=== PATIENT | male | born 1975 | race Caucasian/White ===

== ENCOUNTER 2022-01-07 12:47 | Outpatient (CLI) | payer BC ==
[2022-01-07 13:35] LABS: Hemoglobin 14.9 g/dL (13.5-17.5); Mean Corpuscular Hemoglobin 30.7 pg (27.0-33.0); Mean Platelet Volume 10.7 fl (7.4-10.4); Platelet Count 265 10x3/uL (150-450); RBC Distribution Width 13.5 % (11.5-14.5); Red Blood Cell (RBC) Count 4.85 10x6/uL (4.32-5.72); White Blood Cell (WBC) Count 7.6 10x3/uL (3.5-10.5)
[2022-01-07 13:54] LABS: INR-International Normal Ratio 0.9; PTT 26.5 sec (22.0-33.0); Prothrombin Time 10.3 sec (9.5-12.1)
== END 2022-01-07 12:48 | disposition home or self-care (01) ==
LOC: LABBT 12:47
PROVIDERS: ATTEND Neurological Surgery
DX: Z01.812 Encounter for preprocedural laboratory examination (principal); M50.222 Other cervical disc displacement at C5-C6 level
CPT/HCPCS: 85027; 85610; 85730

== ENCOUNTER 2022-01-10 10:19 | Day surgery (SDC) | payer BC ==
[2022-01-04 09:10] VITALS: BMI 37.3
[2022-01-10] MEDS ORDERED: Thrombin 5000 UNITS/5 ML VIAL ONE (11:32)
[2022-01-10] MEDS ORDERED: Neomycin-Polymyxin 1 ML AMP ONE (11:32)
[2022-01-10] MEDS ORDERED: ceFAZolin 2 GM/Dextrose 50 ML IVPB ONE (11:53)
[2022-01-10] MEDS ORDERED: Midazolam HCl 2 mg/2 ml Vial ONE (11:58)
[2022-01-10] MEDS ORDERED: Fentanyl 250 MCG/5 ML VIAL ONE ×2 (11:58→16:32)
[2022-01-10] MEDS ORDERED: Famotidine/PF 20 mg/2ml Vial ONE (11:58)
[2022-01-10] MEDS ORDERED: ePHEDrine 50 MG/ML VIAL ONE (12:08)
[2022-01-10] MEDS ORDERED: Lidocaine 1% PF 5 ML VIAL ONE (12:08)
[2022-01-10] MEDS ORDERED: Ondansetron PF 4 MG/2 ML Vial ONE (12:08)
[2022-01-10] MEDS ORDERED: Rocuronium Bromide 10 MG/ML (10ML VIAL) ONE (12:08)
[2022-01-10] MEDS ORDERED: Metoclopramide HCl 10 MG/2 ML VIAL ONE (12:08)
[2022-01-10] MEDS ORDERED: PHENYLEPHRINE-NS 100 MCG/ML 10 ML SYRINGE ONE (12:08)
[2022-01-10] MEDS ORDERED: PROPOFOL 200 MG/20 ML VIAL ONE (12:08)
[2022-01-10] MEDS ORDERED: Dexamethasone 20 MG/5 ML VIAL ONE (12:08)
[2022-01-10] MEDS ORDERED: Ketorolac Tromethamine 30 MG/ML VIAL ONE (12:08)
[2022-01-10] MEDS ORDERED: SUGAMMADEX SODIUM 200 MG/2 ML VIAL ONE (14:57)
[2022-01-10] MEDS ORDERED: Cyclobenzaprine 10 MG TAB ONE (17:30)
[2022-01-10] MEDS ORDERED: HYDROcodone/Acetaminophen 7.5/325 mg Tablet ONE (17:30)
== END 2022-01-10 18:50 | disposition home or self-care (01) ==
LOC: SDC 10:19
PROVIDERS: ATTEND Neurological Surgery
PROC: 0RG20A0 Fusion of 2 or more Cervical Vertebral Joints with Interbody Fusion Device, Anterior Approach, Anterior Column, Open Approach (ICD-10-PCS; principal; 2022-01-10)
DX: M50.122 Cervical disc disorder at C5-C6 level with radiculopathy (principal); E78.5 Hyperlipidemia, unspecified; G47.30 Sleep apnea, unspecified; E78.00 Pure hypercholesterolemia, unspecified; E66.9 Obesity, unspecified; Z68.37 Body mass index [BMI] 37.0-37.9, adult; Z87.891 Personal history of nicotine dependence
CPT/HCPCS: 76000; C1713; C1776; J0690; J1100; J1885; J2250; J2405; J2704; J2765; J3010; J3490; S0028

== ENCOUNTER 2022-06-18 16:00 | Outpatient (CLI) | payer BC ==
[2022-06-18 17:08] LABS: Hemoglobin 14.9 g/dL (13.5-17.5); Mean Corpuscular HGB CONC 33.7 g/dL (32.0-36.0); Mean Corpuscular Hemoglobin 31.2 pg (27.0-33.0); Mean Corpuscular Volume 92.5 fl (81.2-95.1); Mean Platelet Volume 11.4 fl (7.4-10.4); Platelet Count 264 10x3/uL (150-450); RBC Distribution Width 13.3 % (11.5-14.5); Red Blood Cell (RBC) Count 4.78 10x6/uL (4.32-5.72); White Blood Cell (WBC) Count 9.3 10x3/uL (3.5-10.5)
[2022-06-18 17:19] LABS: PTT 27.1 sec (22.0-33.0); Prothrombin Time 10.7 sec (9.5-12.1)
== END 2022-06-18 16:01 | disposition home or self-care (01) ==
LOC: LABBT 16:00
PROVIDERS: ATTEND Neurological Surgery
DX: Z01.812 Encounter for preprocedural laboratory examination (principal); M48.061 Spinal stenosis, lumbar region without neurogenic claudication; S32.059A Unspecified fracture of fifth lumbar vertebra, initial encounter for closed fracture; Z20.822 Contact with and (suspected) exposure to COVID-19
CPT/HCPCS: 85027; 85610; 85730; 87811

== ENCOUNTER 2022-06-21 05:35 | Observation (INO) | payer BC ==
[2022-06-19 13:21] VITALS: BMI 37.3
[2022-06-21] MEDS ORDERED: Thrombin 5000 UNITS/5 ML VIAL ONE (06:12)
[2022-06-21] MEDS ORDERED: EPINEPHrine 1 MG/ML AMP ONE (06:12)
[2022-06-21] MEDS ORDERED: Bupivacaine PF 0.5% 30 ML VIAL ONE (06:12)
[2022-06-21] MEDS ORDERED: Neomycin-Polymyxin 1 ML AMP ONE (06:12)
[2022-06-21] MEDS ORDERED: fentaNYL Citrate/PF 100 MCG/2 ML SYRINGE ONE (06:27)
[2022-06-21] MEDS ORDERED: Dexmedetomidine 200 MCG/2 ML VIAL ONE (06:28)
[2022-06-21] MEDS ORDERED: CEFAZOLIN 2 GM VIAL ONE (06:43)
[2022-06-21] MEDS ORDERED: Sodium Chloride 0.9% 100 ML ONE (06:43)
[2022-06-21] MEDS ORDERED: Acetaminophen 325 MG TAB PO PRN (06:49)
[2022-06-21] MEDS ORDERED: Bisacodyl 10 MG SUPP PR PRN (06:49)
[2022-06-21] MEDS ORDERED: Midazolam HCl 2 mg/2 ml Vial ONE (06:49)
[2022-06-21] MEDS ORDERED: diphenhydrAMINE 50 MG/ML VIAL IVP PRN (06:49)
[2022-06-21] MEDS ORDERED: Prochlorperazine 10 MG/2 ML VIAL IM PRN (06:49)
[2022-06-21] MEDS ORDERED: Acetaminophen/Codeine 30-300mg Tablet PO PRN (06:49)
[2022-06-21] MEDS ORDERED: HYDROcodone/Acetaminophen 7.5/325 mg Tablet PO PRN (06:49)
[2022-06-21] MEDS ORDERED: Ondansetron PF 4 MG/2 ML Vial IVP PRN (06:49)
[2022-06-21] MEDS ORDERED: Cyclobenzaprine 10 MG TAB PO PRN (06:49)
[2022-06-21] MEDS ORDERED: Esmolol 100 MG/10 ML VIAL ONE (07:00)
[2022-06-21] MEDS ORDERED: PROPOFOL 200 MG/20 ML VIAL ONE (07:00)
[2022-06-21] MEDS ORDERED: Vecuronium 10 MG VIAL ONE (07:00)
[2022-06-21] MEDS ORDERED: ePHEDrine 50 MG/ML VIAL ONE (07:00)
[2022-06-21] MEDS ORDERED: Ondansetron PF 4 MG/2 ML Vial ONE (07:00)
[2022-06-21] MEDS ORDERED: Lidocaine 1% PF 5 ML VIAL ONE (07:00)
[2022-06-21] MEDS ORDERED: Rocuronium Bromide 10 MG/ML (10ML VIAL) ONE (07:00)
[2022-06-21] MEDS ORDERED: Ketorolac Tromethamine 30 MG/ML VIAL ONE (07:00)
[2022-06-21] MEDS ORDERED: Glycopyrrolate 0.2 MG/ML 5 ML SYRINGE ONE (07:00)
[2022-06-21] MEDS ORDERED: Neostigmine Methylsulfate 3 MG/3 ML SYRINGE ONE (07:00)
[2022-06-21] MEDS ORDERED: Dexamethasone 20 MG/5 ML VIAL ONE (07:00)
[2022-06-21] MEDS ORDERED: HYDROmorphone 2 MG/ML VIAL ONE (12:35)
[2022-06-21] MEDS ORDERED: HYDROmorphone 2 MG/ML VIAL SLOW IVP PRN (13:14)
[2022-06-21] MEDS ORDERED: Promethazine HCl 25 MG/ML VIAL IM PRN (13:14)
[2022-06-21] MEDS ORDERED: Ondansetron HCl/PF 4 MG/2 ML Vial IVP PRN (13:14)
[2022-06-21] MEDS ORDERED: Promethazine HCl 25 MG/ML VIAL IVPB PRN (13:14)
[2022-06-21] MEDS ORDERED: Fentanyl 100 MCG/2 ML VIAL ONE ×2 (13:20→13:51)
[2022-06-21] MEDS: CEFAZOLIN 2 GM in Sodium Chloride 0.9% 100 ML IVPB SCH ×2 (15:58→23:57)
[2022-06-21] MEDS: Sodium Chloride 0.9% 1,000 ML IV SCH ×2 (15:58→20:39)
[2022-06-21] MEDS: HYDROcodone/Acetaminophen 10/325 mg Tablet PO PRN (20:48)
[2022-06-21] MEDS: Morphine 2 MG/ML VIAL SLOW IVP PRN (23:56)
[2022-06-21] MEDS: Milk Of Magnesia 30 ML UDCUP PO PRN (23:57)
[2022-06-22] MEDS: HYDROcodone/Acetaminophen 10/325 mg Tablet PO PRN ×4 (03:14→23:35)
[2022-06-22] MEDS: Morphine 2 MG/ML VIAL SLOW IVP PRN ×2 (05:41→08:34)
[2022-06-22] MEDS: Tamsulosin HCl 0.4 MG CAP PO SCH ×2 (05:43→05:47)
[2022-06-22] MEDS ORDERED: HYDROcodone/Acetaminophen 10/325 mg Tablet PO PRN (07:57)
[2022-06-22] MEDS ORDERED: Ketorolac Tromethamine 30 MG/ML VIAL IVP SCH (08:00)
[2022-06-22] MEDS: Sodium Chloride 0.9% 1,000 ML IV SCH ×2 (11:48→23:39)
[2022-06-22] MEDS: Cyclobenzaprine 10 MG TAB PO SCH ×2 (14:17→21:36)
[2022-06-22] MEDS: Ketorolac Tromethamine 30 MG/ML VIAL IVP SCH ×2 (14:18→21:36)
[2022-06-22] MEDS: Milk Of Magnesia 30 ML UDCUP PO PRN (17:12)
[2022-06-23] MEDS: Ketorolac Tromethamine 30 MG/ML VIAL IVP SCH ×3 (03:28→15:06)
[2022-06-23] MEDS: Milk Of Magnesia 30 ML UDCUP PO PRN (05:43)
[2022-06-23] MEDS: Cyclobenzaprine 10 MG TAB PO SCH ×2 (05:43→15:06)
[2022-06-23] MEDS: Tamsulosin HCl 0.4 MG CAP PO SCH (05:43)
[2022-06-23] MEDS ORDERED: Milk Of Magnesia 30 ML UDCUP PO PRN (09:34)
[2022-06-23] MEDS ORDERED: Polyethylene Glycol 3350 17 GM Packet PO SCH (09:45)
[2022-06-23] MEDS: HYDROcodone/Acetaminophen 10/325 mg Tablet PO PRN (10:39)
[2022-06-23 11:25] VITALS: BP 127/72; TEMP 99.6
[2022-06-23] MEDS: Sodium Chloride 0.9% 1,000 ML IV SCH (11:44)
== END 2022-06-23 16:16 | disposition home or self-care (01) ==
LOC: SDC 05:35 → SURG A 15:39
PROVIDERS: ADMIT Neurological Surgery; ATTEND Neurological Surgery
PROC: 01NB0ZZ Release Lumbar Nerve, Open Approach (ICD-10-PCS; principal; 2022-06-21)
PROC: 01NR0ZZ Release Sacral Nerve, Open Approach (ICD-10-PCS; 2022-06-21)
PROC: 0SG30AJ Fusion of Lumbosacral Joint with Interbody Fusion Device, Posterior Approach, Anterior Column, Open Approach (ICD-10-PCS; 2022-06-21)
DX: M48.061 Spinal stenosis, lumbar region without neurogenic claudication (principal); S32.059A Unspecified fracture of fifth lumbar vertebra, initial encounter for closed fracture; M54.16 Radiculopathy, lumbar region; M43.17 Spondylolisthesis, lumbosacral region; M79.652 Pain in left thigh; E78.00 Pure hypercholesterolemia, unspecified; Z87.891 Personal history of nicotine dependence; Z98.1 Arthrodesis status
CPT/HCPCS: 76000; C1713; C1768; C1776; J0171; J0690; J1100; J1170; J1885; J2250; J2270; J2405; J2704; J3010; J3370; J3490; S0020

== ENCOUNTER 2022-06-26 23:41 | Observation (INO) | payer BC ==
[2022-06-27] MEDS ORDERED: Senokot S 8.6-50 MG TAB PO PRN (02:45)
[2022-06-27] MEDS ORDERED: Ondansetron ODT 4 MG TAB PO PRN (02:45)
[2022-06-27] MEDS ORDERED: Ondansetron PF 4 MG/2 ML Vial IVP PRN (02:45)
[2022-06-27] MEDS ORDERED: Bisacodyl 5 MG TAB PO PRN (02:45)
[2022-06-27] MEDS ORDERED: Heparin 10,000 UNITS/ 10 ML VIAL SLOW IVP SCH (03:00)
[2022-06-27] MEDS ORDERED: Heparin 25,000 units/D5W 500 ML IVPB SCH (03:00)
[2022-06-27] MEDS: Acetaminophen 325 MG TAB PO PRN ×3 (03:22→14:07)
[2022-06-27 03:29] LABS: #Basophils 0.1 thou/uL (0.0-0.2); #Eosinphils 0.2 thou/uL (0.0-0.7); #Monocytes 1.3 thou/uL (0.11-0.59); #Neutrophils 5.5 thou/uL (1.40-6.50); %Basophils 0.6 % (0.0-1.0); %Eosinophils 2.2 % (0.0-10.0); %Lymphocytes 22.2 % (21.0-51.0); %Monocytes 14.3 % (0.0-10.0); %Neutrophils 60.7 % (42.0-75.0); Hemoglobin 12.8 g/dL (14.0-18.0); Mean Corpuscular HGB CONC 34.3 g/dL (32.0-36.0); Mean Corpuscular Hemoglobin 33.3 pg (27.0-31.0); Mean Corpuscular Volume 97.1 fL (78.0-98.0); Mean Platelet Volume 7.9 fL (7.4-10.4); Platelet Count 252 thou/uL (130-400); RBC Distribution Width 12.2 % (11.5-14.5); Red Blood Cell (RBC) Count 3.84 mill/uL (4.70-6.10); White Blood Cell (WBC) Count 9.1 thou/uL (4.8-10.8)
[2022-06-27 04:05] VITALS: BMI 37.4
[2022-06-27 04:30] LABS: ALT (SGPT) 34 U/L (8-55); AST (SGOT) 63 U/L (5-34); Albumin 3.4 g/dL (3.5-5.0); Alkaline Phosphatase 64 U/L (40-110); Anion Gap 19 mmol/L (10-20); BUN (Urea Nitrogen) 9 mg/dL (8.9-20.6); Bilirubin, Total 0.4 mg/dL (0.2-1.2); Calc. Creatinine Clearance 160 mL/min (70-130); Calcium 8.4 mg/dL (7.8-10.44); Carbon Dioxide 16 mmol/L (22-29); Chloride 108 mmol/L (98-107); Estimated GFR 96; Globulin 2.7 g/dL (2.4-3.5); Glucose 81 mg/dL (70-105); Potassium 4.5 mmol/L (3.5-5.1); Protein, Total 6.1 g/dL (6.0-8.3); Sodium 138 mmol/L (136-145)
[2022-06-27] MEDS ORDERED: Acetaminophen 325 MG TAB PO SCH (04:45)
[2022-06-27] MEDS: Ibuprofen 200 MG TAB PO PRN ×4 (05:21→21:57)
[2022-06-27 09:07] LABS: Bacteria/HPF None Seen HPF (None Seen); Bilirubin Negative (Negative); Blood, Urine Negative (Negative); Clarity Clear (Clear); Glucose, Urine (Dipstick) Normal (Negative); Ketone, Urine Negative (Negative); Leukocyte Negative Leu/uL (Negative); Nitrite Negative (Negative); Protein, Urine (Dipstick) Negative (Neg-Trace); RBC/HPF 0-3 HPF (0-3); Specific Gravity, Urine 1.009 (1.002-1.036); Squamous Epithelial None Seen HPF (0-3); Urobilinogen Normal mg/dL (Less than 2); WBC/HPF 0-3 HPF (0-3)
[2022-06-27 10:10] LABS: PTT 121.5 sec (22.9-36.1)
[2022-06-27] MEDS ORDERED: Heparin 25,000 units/D5W 500 ML IV SCH (13:00)
[2022-06-27] MEDS: HYDROcodone/Acetaminophen 5/325 mg Tablet PO PRN ×2 (19:07→23:18)
[2022-06-28] MEDS: HYDROcodone/Acetaminophen 5/325 mg Tablet PO PRN ×4 (05:41→20:49)
[2022-06-28] MEDS: Ibuprofen 200 MG TAB PO PRN ×2 (08:43→22:44)
[2022-06-28] MEDS: Cyclobenzaprine 10 MG TAB PO PRN ×2 (08:44→20:48)
[2022-06-28] MEDS ORDERED: Communication Order-Pharmacy FS SCH (12:50)
[2022-06-28 14:27] LABS: Hemoglobin 12.6 g/dL (14.0-18.0); Platelet Count 344 thou/uL (130-400)
[2022-06-28] MEDS: Enoxaparin Sodium 120 MG/0.8 ML SYRINGE SC SCH (20:50)
[2022-06-28] MEDS ORDERED: Enoxaparin Sodium 80 MG/0.8 ML SYRINGE SC SCH (21:00)
[2022-06-29 04:17] LABS: Hemoglobin 12.5 g/dL (14.0-18.0); Platelet Count 349 thou/uL (130-400)
[2022-06-29 08:00] VITALS: BP 129/75
[2022-06-29] MEDS: Enoxaparin Sodium 120 MG/0.8 ML SYRINGE SC SCH (08:35)
[2022-06-29] MEDS: Cyclobenzaprine 10 MG TAB PO PRN (09:33)
[2022-06-29] MEDS: HYDROcodone/Acetaminophen 5/325 mg Tablet PO PRN (09:33)
[2022-06-29] MEDS: Ibuprofen 200 MG TAB PO PRN (11:36)
[2022-06-29 12:41] VITALS: TEMP 98.9
== END 2022-06-29 14:29 | disposition home or self-care (01) ==
LOC: T4-A 06-27 02:15
PROVIDERS: ADMIT Family Medicine; ATTEND Family Medicine
DX: I26.99 Other pulmonary embolism without acute cor pulmonale (principal); M96.1 Postlaminectomy syndrome, not elsewhere classified; E78.5 Hyperlipidemia, unspecified; Z79.01 Long term (current) use of anticoagulants; Z87.891 Personal history of nicotine dependence
CPT/HCPCS: 36415; 80053; 81001; 85014; 85018; 85025; 85049; 85730; 87040; 87086; 96365; 96366; 96372; 96376; G0378; J1644; J1650